=== PATIENT | female | born 1980 | race African-American/Black ===

== ENCOUNTER 2017-12-21 14:20 | Outpatient (CLI) | payer BC | END 2017-12-21 14:21 | disposition home or self-care (01) | LOC: BICMAMMO 14:20 | PROVIDERS: ATTEND Nurse Practitioner Family | DX: R92.2 Inconclusive mammogram (principal); N63.10 Unspecified lump in the right breast, unspecified quadrant | CPT/HCPCS: 77066; G0279 ==

== ENCOUNTER 2018-01-27 22:55 | Emergency (ER) | payer BC ==
[2018-01-27 23:49] LABS: Bilirubin Negative (Negative); Blood, Urine Small (Negative); Clarity CLEAR (Clear); Glucose, Urine (Dipstick) Negative (Negative); Leukocyte Negative (Negative); Nitrite Negative (Negative); Protein, Urine (Dipstick) Negative (Neg-Trace); Specific Gravity, Urine 1.027 (1.002-1.036); Urobilinogen 0.2 mg/dL (0.2-1.0)
[2018-01-27 23:51] LABS: Bacteria/HPF None Seen HPF (None Seen); Hyaline Casts/LPF 0-3 HYALINE CAST LPF (0-3 Hyaline); Pathc Cast-AUWi Flag 0.58 (0-2.49); Squamous Epithelial 0-3 HPF (0-3); WBC/HPF 0-3 HPF (0-3)
== END 2018-01-28 00:15 | disposition home or self-care (01) ==
LOC: ERS 22:55
DX: O99.89 Other specified diseases and conditions complicating pregnancy, childbirth and the puerperium (principal); R10.30 Lower abdominal pain, unspecified; Z3A.01 Less than 8 weeks gestation of pregnancy
CPT/HCPCS: 81003; 81015

== ENCOUNTER 2018-04-20 15:48 | Outpatient (CLI) | payer BC ==
--- NOTE | 2018-04-20 16:31 | ULT ---
OB ULTRASOUND: History: anatomy, size and dates. Comparison: None. Technique: Sagittal and transverse imaging of the gravid uterus was performed. FINDINGS: Single intrauterine gestation in breech presentation. Suboptimal evaluation of the cervix. heart tones at the rate of 175 beats/minute. biometry: BPD 4.85 cm 20 weeks 5 days HC 18.65 cm 21 weeks 0 days AC 15.50 cm 20 weeks 5 days FL 3.21 cm 20 weeks 0 days The average age by sonography is 20 weeks 5 days. Estimated weight is 354 grams. Amniotic fluid index is 14.3 cm. Posterior placenta. No previa. cervical length and bony structures are adequately demonstrated. Nose, lips, three vessel cord, bladder, four chamber heart, extremities, sagittal spine, cord insertion, stomach. Limited evaluatio n of the kidneys. Cerebellum and lateral ventricle appear to be normal. IMPRESSION: 1. Single intrauterine gestation as above. survey as above. Limited evaluation of the kidneys. 2. Suboptimal evaluation of the cervical length. Posterior placenta. No evidence of previa. POS: [facility]
== END 2018-04-20 15:49 | disposition home or self-care (01) ==
LOC: BICULT 15:48
PROVIDERS: ATTEND Family Medicine
DX: O09.522 Supervision of elderly multigravida, second trimester (principal); Z3A.20 20 weeks gestation of pregnancy
CPT/HCPCS: 76805

== ENCOUNTER 2018-08-21 04:09 | Day surgery (SDC) | payer BC ==
[2018-08-21] MEDS ORDERED: Morphine 10 MG/ML VIAL IM SCH (05:30)
--- NOTE | 2018-08-21 08:38 | ER ---
DATE OF SERVICE: 08/21/2018 PRIMARY OB: Adam Osullivan MD. CHIEF COMPLAINT: Abdominal pains. HISTORY OF PRESENT ILLNESS: The patient is a 37-year-old, G2, P1 female with an intrauterine at 37 weeks and 4 days, who presented to Labor and Delivery with uterine contractions that began about 11 p.m., last night. The patient reports that they have been fairly close together and came in for evaluation of labor. This morning, after 3 hours of evaluation, the patient reports her contractions do feel less intense, and she denies any vaginal bleeding or leakage of fluid. She denies fever, fall, headache, chest pain, shortness of breath, nausea, vomiting, diarrhea, or constipation. She denies hip problems, knee problems, or muscle weakness. Denies any new rashes. PAST MEDICAL HISTORY: Negative. PAST SURGICAL HISTORY: Negative. SOCIAL HISTORY: Denies drug, alcohol, or tobacco use. ALLERGIES: NO KNOWN DRUG ALLERGIES. MEDICATIONS: vitamins. OB LABS: Unavailable at time of dictation. REVIEW OF SYSTEMS: Per HPI. PHYSICAL EXAMINATION: VITAL SIGNS: Blood pressure 130/81, heart rate of 72, respiratory rate of 16, saturating at 100% on room air, temperature 98.1. GENERAL: She appears to be in no acute distress. She is alert and oriented, cooperative and pleasant to interact with. HEAD: Normocephalic and atraumatic. LUNGS: Clear to auscultation bilaterally. HEART: Has regular rate and rhythm. ABDOMEN: Soft, gravid, and nontender. EXTREMITIES: Nontender and nonedematous. : Unchanged at 2, 50, and -2 station after 2-1/2 hours of observation. heart tracing demonstrates the fetus with a baseline in the 140s with moderate long-term variability, positive 15 x 15 accelerations with an isolated deceleration lasting less than a minute. Tocometer; the patient shows a lot of irritability with difficult to assess a good contraction pattern or frequency. ASSESSMENT AND PLAN: The patient is a 37-year-old, G2, P1 female with an intrauterine at 37 weeks, who is here for evaluation of labor. The patient has no evidence of active labor at this time. She has been given morphine 6 mg IM for maternal comfort. She is being discharged to home. Fetus has a category 1 tracing and reactive NST. The patient has been instructed to follow up with her primary OB as scheduled and has been given term labor precautions. Job ID: [id number]
== END 2018-08-21 07:20 | disposition home or self-care (01) ==
LOC: L&D/OP 04:09
PROVIDERS: ATTEND Family Medicine
DX: O47.1 False labor at or after 37 completed weeks of gestation (principal); Z3A.37 37 weeks gestation of pregnancy; Z79.899 Other long term (current) drug therapy
CPT/HCPCS: 96372; 99283; J2270

== ENCOUNTER 2018-08-26 04:05 | Inpatient (IN) | payer BC ==
[2018-08-31] MEDS ORDERED: Methylergonovine 0.2 MG/ML VIAL IM PRN (10:15)
[2018-08-31] MEDS ORDERED: NS w/ Oxytocin 10 units 500 ML IV SCH ×2 (10:15)
[2018-08-31] MEDS ORDERED: Ondansetron PF 4 MG/2 ML Vial IVP PRN ×2 (10:15→17:11)
[2018-08-31] MEDS ORDERED: Butorphanol Tartrate 1 MG/ML VIAL SLOW IVP PRN (10:15)
[2018-08-31] MEDS ORDERED: Carboprost 250 MCG/ML AMP IM PRN (10:15)
[2018-08-31] MEDS ORDERED: HYDROcodone/Acetaminophen 5/325 mg Tablet PO PRN ×3 (10:15→17:11)
[2018-08-31] MEDS ORDERED: Lidocaine 1% (PF) 30 ML VIAL SC PRN (10:15)
[2018-08-31] MEDS ORDERED: Diphenoxylate HCl/Atropine Tablet PO PRN (10:15)
[2018-08-31] MEDS ORDERED: Docusate 100 MG CAP PO PRN (10:15)
[2018-08-31] MEDS ORDERED: Promethazine HCl 25 MG/ML VIAL IM PRN (10:15)
[2018-08-31] MEDS ORDERED: Misoprostol 200 MCG TAB PR PRN (10:15)
[2018-08-31] MEDS ORDERED: Ibuprofen 800 MG TAB PO PRN (10:15)
[2018-08-31] MEDS ORDERED: NS / Oxytocin 40 units/1000ml 1,000 ML IV PRN (10:15)
[2018-08-31] MEDS: Lactated Ringer's 1,000 ML IV SCH ×2 (10:38→13:29)
[2018-08-31 11:03] VITALS: BMI 32.3
[2018-08-31] MEDS ORDERED: Bupivacaine 0.25% HCL 30 ML VIAL ONE (11:11)
[2018-08-31 11:45] LABS: Hemoglobin 10.6 g/dL (12.0-16.0); Mean Corpuscular HGB CONC 32.7 g/dL (32.0-36.0); Mean Corpuscular Hemoglobin 27.3 pg (27.0-31.0); Mean Corpuscular Volume 83.5 fL (78.0-98.0); Mean Platelet Volume 9.4 fL (7.4-10.4); Platelet Count 225 thou/uL (130-400); RBC Distribution Width 13.6 % (11.5-14.5); Red Blood Cell (RBC) Count 3.87 mill/uL (4.20-5.40); White Blood Cell (WBC) Count 9.9 thou/uL (4.8-10.8)
[2018-08-31 12:23] LABS: HBSAg Index 0.34 S/CO (0-0.99); Hep B Surf Ag Non-Reactive S/CO (NonReactive); Syphilis Antibody Nonreactive (Nonreactive); Syphilis Antibody Index 0.03 S/CO (<1.00 Non-Reactive)
[2018-08-31] MEDS ORDERED: Fentanyl 4 mcg/Bup 0.1% Cadd 100 ML ONE (12:49)
[2018-08-31] MEDS ORDERED: Lanolin Ointment 7 GM TUBE TOP PRN (17:11)
[2018-08-31] MEDS ORDERED: diphenhydrAMINE 25 MG CAP PO PRN (17:11)
[2018-08-31] MEDS ORDERED: Preparation H Ointment 28 GM TUBE PR PRN (17:11)
[2018-08-31] MEDS ORDERED: Milk Of Magnesia 30 ML UDCUP PO PRN (17:11)
[2018-08-31] MEDS ORDERED: Benzocaine-Menthol 82.5 ML CAN TOP PRN (17:11)
[2018-08-31] MEDS ORDERED: NS / Oxytocin 40 units/1000ml 1,000 ML IV SCH (17:11)
[2018-08-31] MEDS ORDERED: Bisacodyl 10 MG SUPP PR PRN (17:11)
[2018-08-31] MEDS ORDERED: Adacel (T-DAP) 0.5 ML SYRINGE IM ONE (17:11)
[2018-08-31] MEDS: Ferrous Sulfate 325 MG TAB PO SCH (17:55)
[2018-08-31] MEDS: Docusate Calcium (SURFAK) 240 MG CAP PO SCH (21:12)
[2018-08-31] MEDS: Ibuprofen 800 MG TAB PO SCH (22:11)
[2018-09-01] MEDS: Ibuprofen 800 MG TAB PO SCH ×2 (00:44→10:26)
[2018-09-01 07:40] LABS: Hemoglobin 9.6 g/dL (12.0-16.0); Mean Corpuscular HGB CONC 32.8 g/dL (32.0-36.0); Mean Corpuscular Hemoglobin 27.4 pg (27.0-31.0); Mean Corpuscular Volume 83.5 fL (78.0-98.0); Mean Platelet Volume 9.3 fL (7.4-10.4); Platelet Count 192 thou/uL (130-400); RBC Distribution Width 13.4 % (11.5-14.5); White Blood Cell (WBC) Count 9.9 thou/uL (4.8-10.8)
[2018-09-01] MEDS ORDERED: Prenatal Vitamin 1 TAB PO SCH (09:00)
[2018-09-01] MEDS: Docusate Calcium (SURFAK) 240 MG CAP PO SCH (10:26)
[2018-09-01] MEDS: Ferrous Sulfate 325 MG TAB PO SCH (10:27)
[2018-09-01 12:02] VITALS: BP 123/74; TEMP 98.9
== END 2018-09-01 17:25 | disposition home or self-care (01) | DRG 807 ==
LOC: L&D 08-31 09:58 → 3SW 08-31 18:32
PROVIDERS: ADMIT Family Medicine; ATTEND Family Medicine
PROC: 10E0XZZ Delivery of Products of Conception, External Approach (ICD-10-PCS; principal; 2018-08-31)
PROC: 0HQ9XZZ Repair Perineum Skin, External Approach (ICD-10-PCS; 2018-08-31)
PROC: 3E033VJ Introduction of Other Hormone into Peripheral Vein, Percutaneous Approach (ICD-10-PCS; 2018-08-31)
PROC: 10907ZC Drainage of Amniotic Fluid, Therapeutic from Products of Conception, Via Natural or Artificial Opening (ICD-10-PCS; 2018-08-31)
DX: O70.0 First degree perineal laceration during delivery (principal); Z37.0 Single live birth; Z3A.39 39 weeks gestation of pregnancy
CPT/HCPCS: 36415; 51702; 85027; 86780; 86850; 86900; 86901; 87340; 90715; J2590; S0020